=== PATIENT | male | born 1970 | race African-American/Black ===

== ENCOUNTER 2020-03-08 13:31 | Emergency (ER) | payer SELFPAY ==
[2020-03-08 13:51] VITALS: BP 134/81; PULSE 70; RESP 16; TEMP 36.4; O2SAT 100
--- NOTE | 2020-03-08 14:12 | ED.GENADULT ---
HPI - General Adult General Chief complaint: Urogenital-Male Stated complaint: Urinary issues Time Seen by Provider: 03/08/20 14:12 Source: patient and RN notes reviewed Mode of arrival: ambulatory Limitations: language barrier History of Present Illness HPI narrative: 50-year-old man who presents to [facility] care with complaints of painful urination which has increased over the last week. Patient states he had unprotected sex in [place] in late December prior to coming to [place] on December. Patient states lower suprapubic discomfort with no visual blood in urine or stated purulent drainage from penis. 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 Patient has very broken [place] language is Faroese and it is difficult to get information and history from him. MD complaint: unprotected sex and burning and pain with urination Onset (ago): week(s) (6) Location: abdomen (suprapubic) and genitals Radiation: non-radiation Related Data Allergies Allergy/AdvReac Type Severity Reaction Status Date / Time No Known Allergies Allergy Verified 03/08/20 13:51 Review of Systems Review of Systems: Narrative: CONSTITUTIONAL: Denies fever, chills, or sweats. EYES: Denies visual changes, redness, or discharge. ENT: Denies rhinorrhea, congestion, sore throat, or otalgia. CARDIOVASCULAR: Denies chest pain, palpitations, or edema. RESPIRATORY: Denies cough or dyspnea. GASTROINTESTINAL: Reports suprapubic abdominal pain, no nausea, vomiting, or diarrhea. GENITOURINARY: Positive dysuria, no hematuria. Urinary frequency and nocturia SKIN: Denies rash or itching. MUSCULOSKELETAL: Denies back pain, joint pain, or myalgia. NEUROLOGIC: Denies headache, numbness, or weakness. PSYCHIATRIC: Denies anxiety or depression. All systems reviewed & are unremarkable except as noted in HPI and below PMFSH Past Medical History Medical History (Updated 03/08/20 @ 14:38 by Karolyn Mcqueen NP) Liver abscess when in [place] in [place] Surgical History Surgical History (Updated 03/08/20 @ 14:39 by Karolyn Mcqueen NP) No history of previous surgery Family History Family History (Updated 03/08/20 @ 14:51 by Karolyn Mcqueen NP) Other No significant family history Social History Social History (Updated 03/08/20 @ 14:51 by Karolyn Mcqueen NP) Smoking status: Never smoker Alcohol intake: never Substance use: never Living arrangements: with friend(s) Gender identity (if verbalized by the patient): Male Comments At time of signature, agree with nursing past medical, surgical, social and family history. There is no relevant family history pertinent to the presenting complaint Exam Narrative: Exam Narrative: GENERAL: Well-appearing, well-nourished, and in no acute distress. HEAD: Normocephalic, atraumatic. EYES: PERRLA and EOMI. ENT: Nares clear, no rhinorrhea or epistaxis. Mucous membranes moist. NECK: Supple.no lymphadenopathy CHEST: Clear to auscultation. No respiratory distress.SAO2 100 % on room air HEART: Regular rate and rhythm. No murmur heard. Normal peripheral pulses. ABDOMEN: Soft, nontender, nondistended, normal active bowel sounds. EXTREMITIES: Normal range of motion. No edema. SKIN: Warm, dry, no rash. NEURO: No focal deficits. Alert and oriented x3. Course Vital Signs Vital signs: Vital Signs Temperature 36.4 C 03/08/20 13:51 Pulse Rate 70 03/08/20 13:51 Respiratory Rate 16 03/08/20 13:51 Blood Pressure 134/81 03/08/20 13:51 Pulse Oximetry 100 03/08/20 13:51 Temperature 36.4 C 03/08/20 13:51 Pulse Rate 70 03/08/20 13:51 Respiratory Rate 16 03/08/20 13:51 Blood Pressure 134/81 03/08/20 13:51 Pulse Oximetry 100 03/08/20 13:51 Medical Decision Making MDM Narrative Medical decision making narrative: Patient was treated with Rocephin1 gm IM, Zi
--- NOTE | 2020-03-08 15:07 | PC.NURSE ---
All meds were given, scanned and acknowledged. Gave Rocephin one gram with 2.1 ml of lidocaine, zithromax 1 gm and flagyl 2 grams.
== END 2020-03-08 15:14 | disposition home or self-care (01) ==
PROVIDERS: Emergency Provider Registered Nurse
DX: N39.0 Urinary tract infection, site not specified (principal)
CPT/HCPCS: 81003; 87491; 87591; 87661; 99213; G0463